=== PATIENT | female | born 1985 | race Caucasian/White ===

== ENCOUNTER 2025-01-18 13:34 | Outpatient (CLI) | payer BC, SELFPAY ==
--- NOTE | 2025-01-18 13:40 | CRLHL7_ITS ---
For Patients: As a result of the Century Cures Act, medical imaging exams and procedure reports are released immediately into your electronic medical record. You may view this report before your referring provider. If you have questions, please contact your health care provider. BILATERAL DIGITAL SCREENING MAMMOGRAM WITH COMPUTER-AIDED DETECTION AND TOMOSYNTHESIS 01/18/2025 CLINICAL HISTORY: Routine screening exam. COMPARISON: None. Baseline. TECHNIQUE: Digital mammogram in CC and MLO projections including computer-aided detection (CAD) and tomosynthesis. FINDINGS: RIGHT Breast: There is an asymmetry, central to the nipple on the MLO view, posterior depth. LEFT Breast: No suspicious findings. BREAST COMPOSITION: There are scattered areas of fibroglandular density. IMPRESSION: RIGHT breast asymmetry. RECOMMENDATIONS: Additional mammographic views of the RIGHT breast including 90 degree lateral and spot compression MLO. RIGHT breast ultrasound may also be required. [facility] will contact the patient. BI-RADS Category 0: Incomplete: Need Additional Imaging Evaluation Dictated by Bettie Whiting MD @ 01/22/2025 6:42:26 AM/CRL:kenan STEINER/Dictated by: Bettie Whiting MD @ 01/22/2025 6:42:00 AM (Electronically Signed)
== END 2025-01-18 13:35 | disposition home or self-care (01) ==
LOC: MAMMO 13:38
PROVIDERS: PCP Family Medicine; Visit Provider Obstetrics & Gynecology
DX: Z12.31 Encounter for screening mammogram for malignant neoplasm of breast (principal); N63.10 Unspecified lump in the right breast, unspecified quadrant
CPT/HCPCS: 77063; 77067

== ENCOUNTER 2025-01-25 09:36 | Outpatient (CLI) | payer BC, SELFPAY ==
--- NOTE | 2025-01-25 09:45 | CRLHL7_ITS ---
For Patients: As a result of the Cures Act, medical imaging exams and procedure reports are released immediately into your electronic medical record. You may view this report before your referring provider. If you have questions, please contact your health care provider. RIGHT DIAGNOSTIC MAMMOGRAM WITH COMPUTER-AIDED DETECTION AND TOMOSYNTHESIS RIGHT BREAST ULTRASOUND CLINICAL HISTORY: RIGHT breast mass/asymmetry. COMPARISON: 01/18/2025. TECHNIQUE: Digital RIGHT mammogram in three projections. Tomosynthesis was used in this interpretation. Real-time ultrasound imaging of RIGHT breast with imaging documentation. BREAST COMPOSITION: The breasts are heterogeneously dense, which may obscure small masses. FINDINGS: Additional mammogram images RIGHT breast submitted. Decreased conspicuity of previously noted asymmetric density. No architectural distortion or suspicious calcifications. No adenopathy. Targeted RIGHT breast ultrasound performed in the retroareolar plane. Normal fibroglandular tissue is present. No solid mass. IMPRESSION: No suspicious findings. No evidence of malignancy. RECOMMENDATIONS: Routine screening mammography. A lay language report of this examination will be provided to the patient. BI-RADS Category 2: Benign Dictated by Luis Daniel Vasques MD @ 01/25/2025 10:33:27 AM /sp SP/Dictated by: Luis Daniel Vasques MD @ 01/25/2025 10:33:00 AM (Electronically Signed)
--- NOTE | 2025-01-25 10:15 | CRLHL7_ITS ---
For Patients: As a result of the Century Cures Act, medical imaging exams and procedure reports are released immediately into your electronic medical record. You may view this report before your referring provider. If you have questions, please contact your health care provider. PLEASE SEE RIGHT BREAST DIAGNOSTIC MAMMOGRAM PERFORMED SAME DAY. CRL:sp SP/Dictated by: Luis Daniel Vasques MD @ 01/25/2025 10:38:00 AM (Electronically Signed)
== END 2025-01-25 09:37 | disposition home or self-care (01) ==
LOC: MAMMO 09:36
PROVIDERS: PCP Family Medicine; Visit Provider Obstetrics & Gynecology
DX: N63.10 Unspecified lump in the right breast, unspecified quadrant (principal); R92.8 Other abnormal and inconclusive findings on diagnostic imaging of breast
CPT/HCPCS: 76642; 77065; G0279